=== PATIENT | female | born 1990 | race Hispanic/Latino ===

== ENCOUNTER 2016-07-23 18:48 | Emergency (ER) | payer OTHER ==
[~2016-07-23] VITALS: Ht 157.5 cm; Wt 51.7 kg
[2016-07-23 19:22] VITALS: BP 115/78
--- NOTE | 2016-07-23 19:24 | ED UPPER/LOWER EXTREMITY COMPL ---
History of Present Illness General Chief Complaint: Foot or Ankle Injury Stated Complaint: DROP BOX FELL ON RIGHT FOOT Source: patient Exam Limitations: no limitations Vital Signs & Intake/Output Vital Signs & Intake/Output Vital Signs Date Time Temp Pulse Resp B/P Pulse O2 O2 Flow FiO2 Ox Delivery Rate 07/23 1957 100 Room Air 07/23 1921 98.6 90 18 115/78 100 Room Air Allergies Coded Allergies: No Known Allergies (07/23/16) Reconcile Medications Ibuprofen 600 MG TABLET 1 TAB PO TID PRN pain with food Triage Note: PT TO ED AFTER DROPPING A METAL EL BOX ON R FOOT AT APPROX 8 AM THIS MORNING. FOOT APPEARS SLIGHTLY SWOLLEN AND BRUISED. Triage Nurses Notes Reviewed? yes Onset: Abrupt Duration: hour(s):, continues in ED Timing: single episode today Severity: mild Pain/Injury Location: Right: Foot. Method of Injury: direct blow Modifying Factors: Worsens With: movement. Associated Symptoms: swelling : No Patient currently breastfeeds: No HPI: 26 yo woman presents after a box fell on her right foot this morning. She notes continued pain and swelling with difficulty walking. No ankle pain. No deformity. Past History Travel History Traveled to [place] past 21 day No Medical History Any Pertinent Medical History? see below for history Neurological: NONE EENT: NONE Cardiovascular: NONE Respiratory: NONE Gastrointestinal: NONE Hepatic: NONE Renal: NONE Musculoskeletal: NONE Psychiatric: NONE Endocrine: NONE Blood Disorders: NONE Cancer(s): NONE COIL TESTER/Reproductive: NONE Surgical History Surgical History: none Psychosocial History What is your primary language Luxembourgish Tobacco Use: Never used ETOH Use: denies use Illicit Drug Use: denies illicit drug use Family History Hx Contributory? No Review of Systems Review of Systems Constitutional: Reports: no symptoms. EENTM: Reports: no symptoms. Respiratory: Reports: no symptoms. Cardiovascular: Reports: no symptoms. Gastrointestinal/Abdominal: Reports: no symptoms. Genitourinary: Reports: no symptoms. Musculoskeletal: Reports: no symptoms. Skin: Reports: no symptoms. Neurological/Psychological: Reports: no symptoms. Hematologic/Endocrine: Reports: no symptoms. Immunological: Reports: no symptoms. All Other Systems: Reviewed and Negative Physical Exam Physical Exam General Appearance: well developed/nourished, mild distress Head: atraumatic Eyes: Bilateral: normal appearance. Ears, Nose, Throat: normal ENT inspection Neck: normal inspection, supple Cardiovascular/Respiratory: regular rate/rhythm Back: normal inspection Foot Right: swelling, diffuse tenderness to palpation around right ankle. no focal bony tenderness. No tenderness around right ankle. Skin: intact, normal color, warm/dry Lymphatic: no anterior cervical sejal Progress Differential Diagnosis: contusion, fracture, sprain, tendon injury Plan of Care: Orders Procedure Date/time Status Durable Medical Equipment 07/23 2112 Active Diagnostic Imaging: Viewed by Me: Radiology Read. Discussed w/RAD: Radiology Read. Radiology Impression: right foot... no fx. Comments: PATIENT: MAEGAN HOLLY PRESENT AGE: 26 PATIENT ACCOUNT NO: [id number] : 91 LOCATION: [facility] ORDERING PHYSICIAN: ANUM SAMUEL MD SERVICE DATE: 07/23/16 EXAM TYPE: RAD - XRY-FOOT COMPLETE, R EXAMINATION: XR FOOT, RIGHT CLINICAL INFORMATION: Right-sided pain COMPARISON: None TECHNIQUE: AP, lateral, and oblique views of the right foot. FINDINGS: The bones and soft tissues are normal. No fracture. Alignment is anatomic. Joint spaces are maintained. IMPRESSION: Normal right foot. DICTATED BY: FADIA CALIXTO MD DATE/TIME DICTATED:07/23/162025 FACILITIES OPERATOR:[email or web address] DATE/TIME TRANSCRIBED:07/23/162025 CONFIDENTIAL, DO NOT COPY WITHOUT APPROPRIATE AUTHORIZATION. <Electronically signed in Other Vendor System> SIGNED BY: FADIA CALIXTO MD 07/23/162029 Departure Departure Disposition: HOME OR SELF CARE Condition: Stable Clinical Impression Primary Impression: Contusion Departure Forms: Customer Survey General Discharge Information Prescriptions: Current Visit Scripts Ibuprofen 1 TAB PO TID PRN pain #30 TAB with food Comments alfredo bandage with crutches placed by RN... pt safe for discharge... close follow up advised.
--- NOTE | 2016-07-23 20:30 | RADIOLOGY REPORT ---
EXAMINATION: XR FOOT, RIGHT CLINICAL INFORMATION: Right-sided pain COMPARISON: None TECHNIQUE: AP, lateral, and oblique views of the right foot. FINDINGS: The bones and soft tissues are normal. No fracture. Alignment is anatomic. Joint spaces are maintained. IMPRESSION: Normal right foot.
[2016-07-23] MEDS ORDERED: IBUPROFEN600 M1 PO (20:53)
== END 2016-07-23 21:19 ==
LOC: ERH 18:48
DX: S90.31XA Contusion of right foot, initial encounter (principal); W20.8XXA Other cause of strike by thrown, projected or falling object, initial encounter
CPT/HCPCS: 73630-RT